=== PATIENT | female | born 1995 | race Caucasian/White ===

== ENCOUNTER 2022-03-06 04:39 | Emergency (ER) | payer OTHER ==
[~2022-03-06] VITALS: Ht 160 cm; Wt 51.4 kg
[2022-03-06 04:46] VITALS: BP 122/79; TEMP 98.6
[2022-03-06] MEDS ORDERED: ZOFRAN ODT4 MG PO (05:29)
[2022-03-06 05:40] VITALS: PULSE 80
== END 2022-03-06 05:40 | disposition home or self-care (01) ==
LOC: COL.ER 04:39
DX: B34.9 Viral infection, unspecified (principal); Z20.822 Contact with and (suspected) exposure to COVID-19; Z28.310 Unvaccinated for COVID-19